=== PATIENT | female | born 1940 | race Caucasian/White ===

== ENCOUNTER → 2017-08-06 | Outpatient (CLI) | payer MEDICARE ==
[~2017-08-06] MED LIST: AMLO5 PO; ASPI81CH; ATEN100; CIPR500 PO; CYAN1000; DOCU100 PO; ELIQUIS5 MG PO; GLYCAS; HYDACE5 PO; HYDACE7.5; LEVSOD100 PO; LEVSOD137; LIDO5TP; METO25ER PO; MULVITB; NITR.3TP TOP; NITR.4SL SL; POTA10T PO; PRAV20 PO; SPIHYD; VITAMIN B122500 MC1 PO; WARF3 PO; WARF4; WARF4 PO
[2017-08-06 12:19] LABS: BASOPHILS ABSOLUTE AUTO 0.02 K/mm3 (0.00-0.23); BASOPHILS PERCENT AUTO 1 % (0-2); EOSINOPHILS ABSOLUTE AUTO 0.16 K/mm3 (0.00-0.68); EOSINOPHILS PERCENT AUTO 5 % (0-6); Hematocrit 49.6 % (33.0-51.0); Hemoglobin 15.1 g/dL (11.5-16.0); IMMATURE GRAN ABSOLUTE AUTO 0.01 K/mm3 (0.00-0.10); IMMATURE GRAN PERCENT AUTO 0 % (0-1); LYMPHOCYTES ABSOLUTE AUTO 0.54 K/mm3 (0.84-5.20); LYMPHOCYTES PERCENT AUTO 18 % (21-46); MONOCYTES ABSOLUTE AUTO 0.23 K/mm3 (0.16-1.47); MONOCYTES PERCENT AUTO 8 % (4-13); Mean Corpuscular HGB 27.2 pg (26.0-34.0); Mean Corpuscular HGB Conc 30.4 g/dL (31.5-36.5); Mean Corpuscular Volume 89 fL (80-100); Mean Platelet Volume 9.9 fL (9.1-12.4); NEUTROPHILS ABSOLUTE AUTO 2.04 K/mm3 (1.96-9.15); NEUTROPHILS PERCENT AUTO 68 % (41-73); Platelet Count 215 K/mm3 (150-400); RDW Coefficient Variation 16.4 % (11.7-14.2); RDW Standard Deviation 51.6 fL (35.1-46.3); Red Blood Cell Count 5.56 M/mm3 (3.80-5.20)
[2017-08-06 12:39] LABS: Alanine Aminotransfer (ALT/SGP 11 U/L (12-78); Albumin, Blood 3.3 g/dL (3.4-5.0); Alk Phos 90 U/L (50-136); Anion Gap 7 mmol/L (6-16); Aspartate Aminotrans (AST/SGOT 15 U/L (12-37); Bilirubin, Total 0.7 mg/dL (0.1-1.0); Blood Urea Nitrogen 9 mg/dL (8-24); Bun/Creatinine Ratio 18.6 (12.0-20.0); CO2, Blood 29 mmol/L (21-32); Calcium, Blood 8.1 mg/dL (8.5-10.1); Chloride, Blood 107 mmol/L (98-108); Creatinine, Blood 0.49 mg/dL (0.40-1.00); Globulin, Blood 3.2 g/dL (2.2-4.0); Glomerular Filtration Rate >60 (60-); Glucose, Blood 83 mg/dL (70-99); Potassium, Blood 3.4 mmol/L (3.5-5.5); Sodium, Blood 143 mmol/L (136-145); Total Protein, Blood 6.5 g/dL (6.4-8.2)
== END ==
LOC: LAB HH 12:15 → EDSTATUS 15:14
PROVIDERS: Family Medicine
DX: T84.018D Broken internal joint prosthesis, other site, subsequent encounter (principal); Z96.659 Presence of unspecified artificial knee joint
CPT/HCPCS: 80053; 85025

== ENCOUNTER → 2017-08-16 | Outpatient (CLI) | payer MEDICARE ==
[2017-08-16 15:16] LABS: BASOPHILS ABSOLUTE AUTO 0.05 K/mm3 (0.00-0.23); BASOPHILS PERCENT AUTO 1 % (0-2); EOSINOPHILS ABSOLUTE AUTO 0.31 K/mm3 (0.00-0.68); EOSINOPHILS PERCENT AUTO 6 % (0-6); Hematocrit 30.9 % (33.0-51.0); Hemoglobin 9.1 g/dL (11.5-16.0); IMMATURE GRAN ABSOLUTE AUTO 0.01 K/mm3 (0.00-0.10); IMMATURE GRAN PERCENT AUTO 0 % (0-1); LYMPHOCYTES ABSOLUTE AUTO 1.15 K/mm3 (0.84-5.20); LYMPHOCYTES PERCENT AUTO 23 % (21-46); MONOCYTES ABSOLUTE AUTO 0.52 K/mm3 (0.16-1.47); MONOCYTES PERCENT AUTO 11 % (4-13); Mean Corpuscular HGB 25.9 pg (26.0-34.0); Mean Corpuscular HGB Conc 29.4 g/dL (31.5-36.5); Mean Corpuscular Volume 88 fL (80-100); Mean Platelet Volume 10.3 fL (9.1-12.4); NEUTROPHILS ABSOLUTE AUTO 2.87 K/mm3 (1.96-9.15); NEUTROPHILS PERCENT AUTO 59 % (41-73); Platelet Count 349 K/mm3 (150-400); RDW Standard Deviation 48.2 fL (35.1-46.3); Red Blood Cell Count 3.51 M/mm3 (3.80-5.20); White Blood Cell Count 4.91 K/mm3 (4.00-11.30)
[2017-08-16 15:26] LABS: Alanine Aminotransfer (ALT/SGP 8 U/L (12-78); Albumin, Blood 3.7 g/dL (3.4-5.0); Albumin/Globulin Ratio 1.1 (0.8-1.8); Alk Phos 115 U/L (50-136); Anion Gap 7 mmol/L (6-16); Aspartate Aminotrans (AST/SGOT 18 U/L (12-37); Bilirubin, Total 0.7 mg/dL (0.1-1.0); Blood Urea Nitrogen 10 mg/dL (8-24); Bun/Creatinine Ratio 20.9 (12.0-20.0); CO2, Blood 30 mmol/L (21-32); Calcium, Blood 8.4 mg/dL (8.5-10.1); Chloride, Blood 108 mmol/L (98-108); Creatinine, Blood 0.48 mg/dL (0.40-1.00); Globulin, Blood 3.4 g/dL (2.2-4.0); Glomerular Filtration Rate >60 (60-); Glucose, Blood 122 mg/dL (70-99); Potassium, Blood 3.5 mmol/L (3.5-5.5); Sodium, Blood 145 mmol/L (136-145); Total Protein, Blood 7.1 g/dL (6.4-8.2)
== END ==
LOC: LAB HH 13:48
PROVIDERS: Family Medicine
DX: T84.53XD Infection and inflammatory reaction due to internal right knee prosthesis, subsequent encounter (principal)
CPT/HCPCS: 80053; 85025

== ENCOUNTER → 2017-08-22 | Outpatient (CLI) | payer MEDICARE ==
[2017-08-22 15:40] LABS: C-REACTIVE PROTEIN, EXT RANGE <0.290 mg/dL (0.000-0.300)
[2017-08-22 15:42] LABS: Alanine Aminotransfer (ALT/SGP 11 U/L (12-78); Albumin, Blood 3.7 g/dL (3.4-5.0); Albumin/Globulin Ratio 1.2 (0.8-1.8); Alk Phos 106 U/L (50-136); Anion Gap 6 mmol/L (6-16); Aspartate Aminotrans (AST/SGOT 13 U/L (12-37); Bilirubin, Total 0.6 mg/dL (0.1-1.0); Blood Urea Nitrogen 11 mg/dL (8-24); Bun/Creatinine Ratio 20.8 (12.0-20.0); CO2, Blood 28 mmol/L (21-32); Calcium, Blood 8.9 mg/dL (8.5-10.1); Chloride, Blood 106 mmol/L (98-108); Creatinine, Blood 0.53 mg/dL (0.40-1.00); Globulin, Blood 3.2 g/dL (2.2-4.0); Glomerular Filtration Rate >60 (60-); Glucose, Blood 163 mg/dL (70-99); Potassium, Blood 3.5 mmol/L (3.5-5.5); Sodium, Blood 140 mmol/L (136-145); Total Protein, Blood 6.9 g/dL (6.4-8.2)
== END | disposition home or self-care (01) ==
LOC: LAB HH 14:09
PROVIDERS: Internal Medicine Infectious Disease
DX: T84.53XA Infection and inflammatory reaction due to internal right knee prosthesis, initial encounter (principal)
CPT/HCPCS: 80053; 85651; 86140

== ENCOUNTER → 2017-08-29 | Outpatient (CLI) | payer MEDICARE ==
[2017-08-29 16:28] LABS: BASOPHILS ABSOLUTE AUTO 0.06 K/mm3 (0.00-0.23); BASOPHILS PERCENT AUTO 1 % (0-2); EOSINOPHILS ABSOLUTE AUTO 0.27 K/mm3 (0.00-0.68); EOSINOPHILS PERCENT AUTO 5 % (0-6); Hematocrit 30.7 % (33.0-51.0); IMMATURE GRAN ABSOLUTE AUTO 0.01 K/mm3 (0.00-0.10); IMMATURE GRAN PERCENT AUTO 0 % (0-1); LYMPHOCYTES ABSOLUTE AUTO 1.22 K/mm3 (0.84-5.20); LYMPHOCYTES PERCENT AUTO 24 % (21-46); MONOCYTES ABSOLUTE AUTO 0.51 K/mm3 (0.16-1.47); MONOCYTES PERCENT AUTO 10 % (4-13); Mean Corpuscular HGB 24.5 pg (26.0-34.0); Mean Corpuscular HGB Conc 29.3 g/dL (31.5-36.5); Mean Platelet Volume 10.5 fL (9.1-12.4); NEUTROPHILS ABSOLUTE AUTO 2.99 K/mm3 (1.96-9.15); NEUTROPHILS PERCENT AUTO 59 % (41-73); Platelet Count 315 K/mm3 (150-400); RDW Coefficient Variation 14.7 % (11.7-14.2); RDW Standard Deviation 44.9 fL (35.1-46.3); Red Blood Cell Count 3.68 M/mm3 (3.80-5.20); White Blood Cell Count 5.06 K/mm3 (4.00-11.30)
[2017-08-29 16:38] LABS: Mean Corpuscular Volume 83 fL (80-100)
[2017-08-29 16:51] LABS: Alanine Aminotransfer (ALT/SGP 10 U/L (12-78); Albumin, Blood 3.8 g/dL (3.4-5.0); Albumin/Globulin Ratio 1.2 (0.8-1.8); Alk Phos 108 U/L (50-136); Anion Gap 8 mmol/L (6-16); Aspartate Aminotrans (AST/SGOT 13 U/L (12-37); Bilirubin, Total 0.5 mg/dL (0.1-1.0); Blood Urea Nitrogen 9 mg/dL (8-24); Bun/Creatinine Ratio 16.2 (12.0-20.0); CO2, Blood 29 mmol/L (21-32); Calcium, Blood 9.2 mg/dL (8.5-10.1); Chloride, Blood 104 mmol/L (98-108); Creatinine, Blood 0.56 mg/dL (0.40-1.00); Globulin, Blood 3.2 g/dL (2.2-4.0); Glomerular Filtration Rate >60 (60-); Glucose, Blood 157 mg/dL (70-99); Potassium, Blood 3.6 mmol/L (3.5-5.5); Sodium, Blood 141 mmol/L (136-145)
== END | disposition home or self-care (01) ==
LOC: LAB SHORT 16:17 → LAB 16:17
PROVIDERS: Internal Medicine Infectious Disease
DX: T84.53XD Infection and inflammatory reaction due to internal right knee prosthesis, subsequent encounter (principal)
CPT/HCPCS: 80053; 85025

== ENCOUNTER 2018-09-02 15:51 | Emergency (ER) | payer MEDICARE ==
[~2018-09-02] VITALS: Ht 162.6 cm; Wt 77.1 kg
[2018-09-02 16:46] LABS: BASOPHILS ABSOLUTE AUTO 0.05 K/mm3 (0.00-0.23); BASOPHILS PERCENT AUTO 1 % (0-2); EOSINOPHILS PERCENT AUTO 1 % (0-6); Hematocrit 39.2 % (33.0-51.0); Hemoglobin 12.2 g/dL (11.5-16.0); IMMATURE GRAN ABSOLUTE AUTO 0.05 K/mm3 (0.00-0.10); IMMATURE GRAN PERCENT AUTO 1 % (0-1); LYMPHOCYTES ABSOLUTE AUTO 1.98 K/mm3 (0.84-5.20); LYMPHOCYTES PERCENT AUTO 21 % (21-46); MONOCYTES ABSOLUTE AUTO 1.15 K/mm3 (0.16-1.47); MONOCYTES PERCENT AUTO 12 % (4-13); Mean Corpuscular HGB Conc 31.1 g/dL (31.5-36.5); Mean Corpuscular Volume 83 fL (80-100); Mean Platelet Volume 9.9 fL (9.1-12.4); NEUTROPHILS ABSOLUTE AUTO 5.99 K/mm3 (1.96-9.15); NEUTROPHILS PERCENT AUTO 64 % (41-73); Platelet Count 334 K/mm3 (150-400); RDW Coefficient Variation 16.1 % (11.7-14.2); RDW Standard Deviation 49.2 fL (35.1-46.3); White Blood Cell Count 9.32 K/mm3 (4.00-11.30)
[2018-09-02 17:06] LABS: Alanine Aminotransfer (ALT/SGP 28 U/L (12-78); Albumin/Globulin Ratio 0.6 (0.8-1.8); Alk Phos 100 U/L (50-136); Anion Gap 5 mmol/L (6-16); Aspartate Aminotrans (AST/SGOT 21 U/L (12-37); Bilirubin, Total 0.6 mg/dL (0.1-1.0); Blood Urea Nitrogen 11 mg/dL (8-24); Bun/Creatinine Ratio 16.4 (12.0-20.0); CO2, Blood 34 mmol/L (21-32); Calcium, Blood 8.9 mg/dL (8.5-10.1); Chloride, Blood 99 mmol/L (98-108); Creatinine, Blood 0.67 mg/dL (0.40-1.00); Globulin, Blood 4.8 g/dL (2.2-4.0); Glomerular Filtration Rate >60 (60-); Glucose, Blood 86 mg/dL (70-99); Potassium, Blood 2.6 mmol/L (3.5-5.5); Sodium, Blood 138 mmol/L (136-145); Total Protein, Blood 7.8 g/dL (6.4-8.2)
[2018-09-02 18:14] LABS: Body Fluid Crystals NEG (NEGATIVE)
[2018-09-02 18:25] LABS: BODY FLUID RBC 0.013 (0-0); RBC Count, Synovial Fluid 13000 /mm3 (0-0)
[2018-09-02 18:38] LABS: WBC Count, Synovial Fluid 60740 /mm3 (0-180)
[2018-09-02 18:42] LABS: Lymphs, Synovial Fluid 1 % (0-15); Monocytes/Macrophages, Synovia 6 % (0-65); Neutrophils, Synovial Fluid 93 % (0-24)
[2018-09-02 18:45] LABS: Appearance, Synovial Fluid Cloudy (Clear); Color, Synovial Fluid Yellow (None-P Yel)
[2018-09-02 20:04] LABS: Anion Gap 2 mmol/L (6-16); Blood Urea Nitrogen 9 mg/dL (8-24); Bun/Creatinine Ratio 14.1 (12.0-20.0); CO2, Blood 34 mmol/L (21-32); Calcium, Blood 8.7 mg/dL (8.5-10.1); Chloride, Blood 102 mmol/L (98-108); Creatinine, Blood 0.64 mg/dL (0.40-1.00); Glomerular Filtration Rate >60 (60-); Glucose, Blood 118 mg/dL (70-99); Potassium, Blood 3.4 mmol/L (3.5-5.5); Sodium, Blood 138 mmol/L (136-145)
== END 2018-09-02 21:19 | disposition home or self-care (01) ==
LOC: ER 15:51
PROVIDERS: Emergency Medicine; Physician Assistant
DX: M25.461 Effusion, right knee (principal); M25.561 Pain in right knee; E87.6 Hypokalemia; Z88.1 Allergy status to other antibiotic agents; Z88.8 Allergy status to other drugs, medicaments and biological substances; Z79.899 Other long term (current) drug therapy; I48.91 Unspecified atrial fibrillation; I10 Essential (primary) hypertension; E03.9 Hypothyroidism, unspecified; Z87.891 Personal history of nicotine dependence
CPT/HCPCS: 20610; 36415; 73562-RT; 80048; 80053; 83735; 85025; 85651; 87070; 87075; 87205; 89051; 89060; 96374-59; 99283-25; J3480

== ENCOUNTER 2022-01-01 19:37 | Observation (INO) | payer MEDICARE ==
[~2022-01-01] VITALS: Ht 167.6 cm; Wt 69.8 kg
[~2022-01-01 19:37] MED LIST changes: -LEVSOD100 PO; +LEVSOD75 PO
[2022-01-01] MEDS ORDERED: LISI5 PO (19:48)
[2022-01-01] MEDS ORDERED: POTCHL20ER PO (19:49)
[2022-01-01 20:09] LABS: BASOPHILS ABSOLUTE AUTO 0.06 K/mm3 (0.00-0.23); BASOPHILS PERCENT AUTO 1 % (0-2); EOSINOPHILS ABSOLUTE AUTO 0.31 K/mm3 (0.00-0.68); EOSINOPHILS PERCENT AUTO 5 % (0-6); Hematocrit 46.8 % (33.0-51.0); Hemoglobin 15.5 g/dL (11.5-16.0); IMMATURE GRAN ABSOLUTE AUTO 0.01 K/mm3 (0.00-0.10); IMMATURE GRAN PERCENT AUTO 0 % (0-1); LYMPHOCYTES ABSOLUTE AUTO 2.26 K/mm3 (0.84-5.20); LYMPHOCYTES PERCENT AUTO 37 % (21-46); MONOCYTES ABSOLUTE AUTO 0.56 K/mm3 (0.16-1.47); MONOCYTES PERCENT AUTO 9 % (4-13); Mean Corpuscular HGB 29.4 pg (26.0-34.0); Mean Corpuscular HGB Conc 33.1 g/dL (31.5-36.5); Mean Corpuscular Volume 89 fL (80-100); Mean Platelet Volume 10.2 fL (9.1-12.4); NEUTROPHILS ABSOLUTE AUTO 2.89 K/mm3 (1.96-9.15); NEUTROPHILS PERCENT AUTO 47 % (41-73); Platelet Count 272 K/mm3 (150-400); RDW Coefficient Variation 13.2 % (11.7-14.2); RDW Standard Deviation 43.4 fL (35.1-46.3); Red Blood Cell Count 5.28 M/mm3 (3.80-5.20); White Blood Cell Count 6.09 K/mm3 (4.00-11.30)
[2022-01-01 20:30] LABS: Albumin, Blood 3.9 g/dL (3.4-5.0); Albumin/Globulin Ratio 1.1 (0.8-1.8); Bilirubin, Total 1.2 mg/dL (0.1-1.0); Bun/Creatinine Ratio 17.4 (12.0-20.0); Calcium, Blood 8.8 mg/dL (8.5-10.1); Creatinine, Blood 0.69 mg/dL (0.40-1.00); Globulin, Blood 3.4 g/dL (2.2-4.0); Total Protein, Blood 7.3 g/dL (6.4-8.2)
[2022-01-01 23:06] LABS: Thyroid Stimulating Hormone 1.35 uIU/mL (0.360-4.800)
--- NOTE | 2022-01-02 05:07 | NUR ---
SHIFT SUMMARY PT CAME TO PCU 14 FOR AFIB RVR. SHE WAS ON AMIO WHEN ARRIVING TO THE UNIT AND HER HR HAS SUSTAINED AFIB 95-130BPM ON TELE. SHE IS SBA FOR TX, A&OX4, MOVES IND IN BED, AND CALLS APPROPRIATELY. PT DENIES SOB, ANGINA, AND N/V. NO ACUTE CONCERNS AND I WILL CONTINUE TO MONITOR UNTIL SHIFT REPORT IS GIVEN TO THE ONCOMING SHIFT RN. SEE NOTES FOR ANY UPDATES.
[2022-01-02 07:11] LABS: Bun/Creatinine Ratio 17.2 (12.0-20.0); Creatinine, Blood 0.7 mg/dL (0.40-1.00); Potassium, Blood 3.7 mmol/L (3.5-5.5)
--- NOTE | 2022-01-02 10:27 | NUR ---
AM NOTE: PATIENT ALERT AND ORIENTED X4. DENIES NUMBNESS/TINGLING. UP WITH SBA TO BATHROOM TO HELP MANAGE LINES. DOES NOT USE WALKER OR CANE AT BASELINE. PERRLA. ON ROOM AIR, SATING ABOVE 95%. LUNGS SOUNDING CLEAR. DENIES COUGH. TELE SHOW AFIB WITH HR 90-130'S. DENIES CHEST PAIN/PRESSURE. STATES SHE CAN OCCASIONALLY FEEL PALPITATIONS. BP STABLE. AMIO DRIP THIS AM THAT HAS BEEN DISCONTINUED. PPP. ON PO METOPROLOL. PATIENT EDUCATED ON INCREASED DOSE. WILL TREND HR IN DOCUMENTATION. NO SIGNS OF EDEMA. DENIES ABDOMINAL PAIN/NAUSEA. EATING WELL. UP TO USE BATHROOM. BOWEL TONES PRESENT. CALL LIGHT IN REACH. ABLE TO MAKE NEEDS KNOWN. THIS RN SPOKE WITH DR. MERRITT THIS AM ABOUT PLAN OF CARE, PLAN TO TRY AND CONTROL HR WITH PO METOPROLOL AT THIS TIME. WILL CONTINUE TO MONITOR.
--- NOTE | 2022-01-02 13:08 | NUR ---
CALL PLACED TO DR. MERRITT TO UPDATE ON HR. HR AVERAGING 120-130'S AND MOST RECENT BP OF 97/80. NO NEW ORDERS FOR THIS RN TO PLACE. WILL CONTINUE TO MONITOR.
--- NOTE | 2022-01-02 17:11 | NUR ---
SHIFT SUMMARY: SEE PREVIOUS NOTE FOR UPDATES. REMAINS ALERT AND ORIENTED X4. NO CHANGES TO RESP. REMAINS ON ROOM AIR. TELE SHOWING AFIB. CALL PLACED TO DR. MERRITT AT 1536 REGARDING HR AVERAGING 130'S AND SOFT BP. NEW ORDERS FOR THIS RN TO PLACE FOR 0.5MG IV PUSH DIGOXIN X1 AT 1600, 0.25MG IV PUSH DIGOXIN X1 AT 2000, AND ADDING ON A DIG LAB LEVEL TO AM LABS. ORDERS IN PLACE. 0.5MG IV DIGOXIN GIVEN AT 1600. HR AVERAGING 110'S AT THIS TIME. PATIENT EDUCATED ON DIGOXIN AND QUESTIONS ANSWERED. UP TO BATHROOM WITH ONE PERSON ASSIST. ALL OTHER VITALS STABLE. EATING WELL. CALL LIGHT IN REACH. DENIES NEEDS. WILL REPORT OFF TO ONCOMING RN.
--- NOTE | 2022-01-03 05:50 | NUR ---
SHIFT SUMMARY PT A&O X4. VSS. PM DIGOXIN HELD DUE TO HR OF 60 W/PARAMETERS TO HOLD IF HR <60. DURING NIGHT, PT HAD A FEW EPISODES OF SB W/HR IN 40'S - 57. PT DENIES SOB, CHEST PAIN OR CHEST PRESSURE. DENIES DIZZINESS OR LIGHTHEADNESS. NO ACUTE CHANGES THROUGHOUT THIS SHIFT. PT UP TO BATHROOM W/SUPERVISION; TOLERATES WELL AND GAIT IS STEADY. CURRENTLY PT IS RESTING. CALL LIGHT IN REACH
[2022-01-03 07:52] LABS: Digoxin (Lanoxin) 1.41 ug/mL (0.80-2.00)
--- NOTE | 2022-01-03 10:42 | NUR ---
AM NOTE: PATIENT ALERT AND ORIENTED X4. NEURO WNL. UP IND TO BATHROOM. DENIES N/T. ON ROOM AIR SATING ABOVE 95%. LUNGS SOUNDING CLEAR. DENIES SOB. TELE SHOWING SB-SR WITH HR 50-70'S. DENIES CHEST PAIN/PRESSURE. BP STABLE. PPP. NO SIGNS OF EDEMA. CALL PLACED TO DR. MERRITT TO UPDATE ON HR/BP AND ASK ABOUT MORN CARDIAC MEDS. ORDERS FOR THIS RN TO CHANGE 37.5 MG PO BID METORPOLOL SUCCINATE TO 25 MG PO BID METOPROLOL SUCCINATE. ORDERS IN PLACE AND PATIENT RECIEVED 25 MG PO DOSE THIS AM, ALONG WITH OTHER AM MEDS. SEE EMAR. DENIES ABDOMINAL PAIN/NAUSEA. EATING WNL. UP TO BATHROOM IND. CALLING FOR NEEDS. DENIES NEEDS AT THIS TIME. WILL CONTINUE TO MONITOR.
[2022-01-03] MEDS ORDERED: DIGOX125 MC1 PO (13:02)
--- NOTE | 2022-01-03 13:35 | NUR ---
DISCHARGE NOTE: NO ACUTE CHANGES. PATIENT REMAINS SINUS RHYTHM WITH HR 60'S. DISCHARGE INSTRUCTIONS REVIEWED WITH AND PATIENT. DISCUSSED F/U APPOINTMENTS, NEW MEDICATIONS, AND PRECAUTIONS WITH NEW MEDICATIONS. IV REMOVED WNL. PATIENT AND ABLE TO TEACH BACK DISCHARGE INSTRUCTIONS. PATIENT LEFT UNIT VIA WHEELCHAIR WITH ALL PERSONAL BELONGINGS.
== END 2022-01-03 13:32 | disposition home or self-care (01) ==
LOC: ER 19:37 → PCU 19:38
PROVIDERS: Emergency Medicine; Internal Medicine; ADMIT Internal Medicine
DX: I48.91 Unspecified atrial fibrillation (principal); R07.89 Other chest pain; I10 Essential (primary) hypertension; E03.9 Hypothyroidism, unspecified; I95.9 Hypotension, unspecified; I25.10 Atherosclerotic heart disease of native coronary artery without angina pectoris; I25.2 Old myocardial infarction; Z88.8 Allergy status to other drugs, medicaments and biological substances; Z88.1 Allergy status to other antibiotic agents; Z79.01 Long term (current) use of anticoagulants; Z87.891 Personal history of nicotine dependence
CPT/HCPCS: 36415; 71045; 80048; 80053; 80162; 84439; 84443; 84484; 85025; 93005; 93010; 96375; 96376; A9270; G0378; J0282; J1160; J7060

== ENCOUNTER 2023-05-24 16:13 | Emergency (ER) | payer OTHER ==
[~2023-05-24] VITALS: Ht 165.1 cm; Wt 77.1 kg
[~2023-05-24 16:13] MED LIST changes: +DIGOX125 MC1 PO; +Flecainide Acet50 MG; +LISI5 PO; +POTA8; +POTCHL20ER PO
[2023-05-24 17:34] LABS: BASOPHILS ABSOLUTE AUTO 0.08 K/mm3 (0.00-0.23); BASOPHILS PERCENT AUTO 1 % (0-2); EOSINOPHILS PERCENT AUTO 5 % (0-6); Hematocrit 42.8 % (33.0-51.0); Hemoglobin 13.9 g/dL (11.5-16.0); IMMATURE GRAN ABSOLUTE AUTO 0.01 K/mm3 (0.00-0.10); IMMATURE GRAN PERCENT AUTO 0 % (0-1); LYMPHOCYTES ABSOLUTE AUTO 1.73 K/mm3 (0.84-5.20); LYMPHOCYTES PERCENT AUTO 29 % (21-46); MONOCYTES ABSOLUTE AUTO 0.47 K/mm3 (0.16-1.47); MONOCYTES PERCENT AUTO 8 % (4-13); Mean Corpuscular HGB 29.4 pg (26.0-34.0); Mean Corpuscular HGB Conc 32.5 g/dL (31.5-36.5); Mean Corpuscular Volume 91 fL (80-100); Mean Platelet Volume 10.8 fL (9.1-12.4); NEUTROPHILS ABSOLUTE AUTO 3.39 K/mm3 (1.96-9.15); NEUTROPHILS PERCENT AUTO 57 % (41-73); Platelet Count 266 K/mm3 (150-400); RDW Coefficient Variation 13.8 % (11.7-14.2); RDW Standard Deviation 46.2 fL (35.1-46.3); Red Blood Cell Count 4.73 M/mm3 (3.80-5.20); White Blood Cell Count 5.98 K/mm3 (4.00-11.30)
[2023-05-24 17:35] LABS: Albumin, Blood 3.7 g/dL (3.4-5.0); Albumin/Globulin Ratio 1.2 (0.8-1.8); Bilirubin, Total 0.7 mg/dL (0.1-1.0); Bun/Creatinine Ratio 14.3 (12.0-20.0); Calcium, Blood 8.9 mg/dL (8.5-10.1); Creatinine, Blood 0.84 mg/dL (0.40-1.00); Globulin, Blood 3.2 g/dL (2.2-4.0); Potassium, Blood 4.2 mmol/L (3.5-5.5); Total Protein, Blood 6.9 g/dL (6.4-8.2)
[2023-05-24] MEDS ORDERED: EUTHYROX100 MC1 PO (17:36)
[2023-05-24] MEDS ORDERED: Tambocor100 MG PO (17:36)
[2023-05-24 18:15] VITALS: BP 162/74
== END 2023-05-24 18:35 | disposition home or self-care (01) ==
LOC: ER 16:13
PROVIDERS: Physician Assistant
DX: R07.89 Other chest pain (principal); E03.9 Hypothyroidism, unspecified; I10 Essential (primary) hypertension; I48.91 Unspecified atrial fibrillation; Z88.8 Allergy status to other drugs, medicaments and biological substances; Z79.01 Long term (current) use of anticoagulants; Z79.899 Other long term (current) drug therapy; Z79.890 Hormone replacement therapy; Z87.891 Personal history of nicotine dependence
CPT/HCPCS: 80053; 84484; 85025; 99285-25